=== PATIENT | male | born 1990 | race African-American/Black ===

== ENCOUNTER 2024-05-09 19:00 | Emergency (ER) | payer BC, OTHER ==
[~2024-05-09] VITALS: Ht 180.3 cm; Wt 79.8 kg
[2024-05-09] MEDS ORDERED: ONDANSETRON 4 MG/2 ML VIAL ONE (19:59)
[2024-05-09] MEDS: ONDANSETRON 4 MG/2 ML VIAL IV ONE (20:02)
[2024-05-09] MEDS: IV NORMAL SALINE 1000 ML BAG IV ONE (20:03)
[2024-05-09 20:22] LABS: CALCIUM 8.3 mg/dL (8.5-10.1); CREATININE 1.8 mg/dL (0.6-1.3); POTASSIUM 3.2 mmol/L (3.5-5.1)
[2024-05-09 20:27] LABS: BILIRUBIN,DIRECT 0.1 mg/dL (0.0-0.2); BILIRUBIN,TOTAL 0.3 mg/dL (0.2-1.0); TOTAL PROTEIN, SERUM 6.8 g/dL (6.4-8.2)
[2024-05-09 20:32] LABS: BASOPHILS % (AUTO) 0.4 % (0.0-2.0); EOSINOPHILS # (AUTO) 0.1 K/uL (0.0-0.7); EOSINOPHILS % (AUTO) 1.6 % (0.0-7.0); HEMATOCRIT 43.9 % (36.7-47.1); HEMOGLOBIN 14.3 g/dL (12.5-16.3); LYMPHOCYTES # (AUTO) 1.4 K/uL (0.8-4.8); LYMPHOCYTES % (AUTO) 17.3 % (20.5-51.5); MEAN CORPUSCULAR HEMOGLOBIN 30.4 uug (23.8-33.4); MEAN CORPUSCULAR HGB CONC 33 g/dL (32.5-36.3); MEAN CORPUSCULAR VOLUME 93.3 fL (73.0-96.2); MONOCYTES # (AUTO) 0.5 K/uL (0.1-1.30); MONOCYTES % (AUTO) 5.8 % (0.0-11.0); NEUTROPHILS # (AUTO) 5.9 K/uL (1.8-8.9); NEUTROPHILS % (AUTO) 74.9 % (38.5-71.5); PLATELET COUNT (AUTO) 76 K/uL (152-348); RED BLOOD CELL COUNT(AUTO) 4.71 MIL/uL (4.06-5.63); RED CELL DISTRIBUTION WIDTH 13.9 % (12.1-16.2); WHITE BLOOD COUNT (AUTO) 7.9 K/uL (3.6-10.2)
[2024-05-09 20:35] LABS: DIFFERENTIAL COMMENT 1
[2024-05-09] MEDS ORDERED: POTASSIUM CHLORIDE 20 MEQ TAB.PRT.SR ONE (20:48)
[2024-05-09] MEDS: POTASSIUM CHLORIDE 20 MEQ TAB.PRT.SR PO ONE (20:50)
[2024-05-09 21:08] LABS: LYMPHOCYTES % (MANUAL) 17 % (20-40); MONOCYTES % (MANUAL) 4 % (2-10); NEUTROPHILS % (MANUAL) 79 % (42-75)
[2024-05-09 21:10] LABS: ANISOCYTOSIS 1+; PLATELET ESTIMATE DECREASED
[2024-05-09 21:30] VITALS: BP 124/69; TEMP 97.5; O2SAT 99
== END 2024-05-09 21:32 | disposition home or self-care (01) ==
LOC: ER 19:03
DX: R55 Syncope and collapse (principal); E86.0 Dehydration; R94.31 Abnormal electrocardiogram [ECG] [EKG]; J45.909 Unspecified asthma, uncomplicated
CPT/HCPCS: 99284; 96374; 96361; 80076; 80048; 82962; 85025; 84484; 36415; 93005; 85007; J2405; J7040; 70030-TC; A4606; A4663